=== PATIENT | female | born 1940 | race Asian ===

== ENCOUNTER 2022-01-22 07:58 | Inpatient (IN) | payer MEDICARE, OTHER ==
[~2022-01-22] VITALS: Ht 157.5 cm; Wt 68.9 kg
[2022-01-22 08:46] LABS: BASOPHILS % (AUTO) 0.4 % (0.0-2.0); EOSINOPHILS % (AUTO) 1.3 % (1.0-6.0); HEMATOCRIT 26.8 % (36-46); HEMOGLOBIN 8.7 g/dL (12.0-16.0); LYMPHOCYTES # (AUTO) 0.4 K/uL (1.0-4.8); LYMPHOCYTES % (AUTO) 4.4 % (22.0-44.0); MEAN CORPUSCULAR HGB CONC 32.4 G/dL (31.0-37.0); MEAN CORPUSCULAR VOLUME 93 fL (80-100); MONOCYTES # (AUTO) 0.7 K/uL (0.1-1.0); MONOCYTES % (AUTO) 7.7 % (2.0-9.0); NEUTROPHILS # (AUTO) 8.2 K/uL (1.8-7.7); NEUTROPHILS % (AUTO) 86.2 % (40.0-70.0); PLATELET COUNT (AUTO) 222 K/uL (150-450); RED BLOOD CELL COUNT(AUTO) 2.89 MIL/uL (4.00-5.20); RED CELL DISTRIBUTION WIDTH 15.2 % (11.5-14.5)
[2022-01-22 08:55] LABS: CALCIUM, TOTAL 9.3 mg/dL (8.8-10.5); CREATININE 1.69 mg/dL (0.60-1.30); POTASSIUM 3.6 mmol/L (3.5-5.1)
[2022-01-22 08:58] LABS: INR 0.9 (0.9-1.1)
[2022-01-22 09:01] LABS: ALBUMIN 2.5 g/dL (3.4-5.0); BILIRUBIN,TOTAL 0.5 mg/dL (0.1-1.0); TOTAL PROTEIN, SERUM 6.2 g/dL (6.4-8.2)
[2022-01-22] MEDS ORDERED: FUROSEMIDE 20 MG/2 ML VIAL IVP ONE (09:15)
[2022-01-22] MEDS ORDERED: CefTRIAXone 1 GM/DEXTROSE 50 ML IV ONE (09:15)
[2022-01-22] MEDS ORDERED: NITROGLYCERIN 2% (1 GM=INCH) PACKET TP ONE (09:15)
[2022-01-22] MEDS ORDERED: AZITHROMYCIN 500 MG/NS 250 ML IV ONE (09:15)
[2022-01-22] MEDS ORDERED: OMEP20 PO (09:46)
[2022-01-22] MEDS ORDERED: AMLO-257 PO (09:46)
[2022-01-22] MEDS ORDERED: SENN8.6T90 PO (09:46)
[2022-01-22] MEDS ORDERED: LEVO25TA9 PO (09:46)
[2022-01-22] MEDS ORDERED: AMIO200T68 PO (09:46)
[2022-01-22] MEDS ORDERED: FURO20 PO (09:46)
[2022-01-22] MEDS ORDERED: METO25 PO (09:46)
[2022-01-22] MEDS ORDERED: SIMV-259 PO (09:46)
[2022-01-22] MEDS ORDERED: BUSP5TAB20 PO (09:46)
[2022-01-22 10:14] LABS: ABG BASE EXCESS 10.9 mmol/L (-2.0-3.0); ABG CARBOXYHEMOGLOBIN 0.2 % (0.0-1.5); ABG METHEMOGLOBIN 0.1 % (0.0-1.5); ABG OXYGEN CONTENT 11.8 mL/dL (15.0-23.0); ABG OXYGEN SATURATION 86.3 % (95.0-98.0); ABG PCO2 59 mmHg (35-45); ABG PH 7.402 (7.35-7.450); ABG TOTAL HEMOGLOBIN 9.7 G/dL (12.0-18.0); PO2, ARTERIAL BG 50.2 mmHg (71.0-79.0); SOURCE, BLOOD GAS ARTERIAL; TEMPERATURE, FAHRENHEIT, BG 98.6 FAHREN (96.0-98.6)
[2022-01-22 10:15] LABS: ABG A-A DIFF O2 29.2 mmHg (10-20.0); O2 DEVICE,BLOOD GAS ROOM AIR (ROOM AIR); SITE, BLOOD GAS RT RADIAL
[2022-01-22 12:01] LABS: GLUCOMETER DEV NAME(LOC) ERT.5; GLUCOSE,POINT OF CARE 125 MG/DL (70-110)
[2022-01-22 12:03] LABS: COVID AG,FIA SOURCE NASOPHARYNGEAL
[2022-01-22] MEDS ORDERED: MethylPREDNISolone SOD SUCC 125 MG/2 ML VIAL IVP ONE (12:45)
[2022-01-22] MEDS ORDERED: MORPHINE SULFATE 2 MG/ML SYRINGE IVP PRN (14:00)
[2022-01-22] MEDS ORDERED: HYDROCODONE/ACETAMINOPHEN 5-325 MG TABLET PO PRN (14:00)
[2022-01-22] MEDS ORDERED: ZOLPIDEM TARTRATE 5 MG TABLET PO PRN (14:00)
[2022-01-22] MEDS ORDERED: MAGNESIUM HYDROXIDE SUSPENSION 30 ML UDCUP PO PRN (14:00)
[2022-01-22] MEDS ORDERED: ACETAMINOPHEN 325 MG TABLET PO PRN (14:00)
[2022-01-22] MEDS ORDERED: IPRATROPIUM BROMIDE 0.5 MG/2.5 ML NEB SOLUTION NEB PRN (14:00)
[2022-01-22] MEDS ORDERED: BISACODYL 10 MG RECTAL RECTAL SUPPOSITORY PR PRN (14:00)
[2022-01-22] MEDS ORDERED: ALBUTEROL SULFATE 2.5 MG/0.5 ML NEB SOLUTION NEB PRN (14:00)
[2022-01-22] MEDS ORDERED: ONDANSETRON HCL 4 MG/2 ML VIAL IVP PRN (14:00)
[2022-01-22] MEDS: ALBUTEROL SULFATE 2.5 MG/0.5 ML NEB SOLUTION NEB SCH ×2 (14:49→19:42)
[2022-01-22] MEDS: IPRATROPIUM BROMIDE 0.5 MG/2.5 ML NEB SOLUTION NEB SCH ×2 (14:49→19:41)
[2022-01-22 15:37] LABS: INFLUENZA TYPE A NEGATIVE FOR TYPE A (NEGATIVE); INFLUENZA TYPE B NEGATIVE FOR TYPE B (NEGATIVE)
[2022-01-22 16:00] VITALS: BP 174/81
[2022-01-22] MEDS ORDERED: METOPROLOL TARTRATE 25 MG TABLET ONE (17:07)
[2022-01-22] MEDS: BENZONATATE 100 MG CAPSULE PO SCH ×2 (17:24→21:31)
[2022-01-22] MEDS: MethylPREDNISolone SOD SUCC 125 MG/2 ML VIAL IVP SCH ×2 (17:24→23:56)
[2022-01-22] MEDS: HEPARIN SODIUM,PORCINE 5,000 UNITS/ML VIAL SQ SCH ×2 (17:24→23:55)
[2022-01-22] MEDS ORDERED: INFLUENZA VIRUS VACCINE QVS 2022-23 (6MO+)/PF 60 MCG/0.5 ML SYRINGE IM. ONE (18:45)
[2022-01-22 20:00] VITALS: BP 142/56
[2022-01-22] MEDS ORDERED: METOPROLOL TARTRATE 25 MG TABLET PO SCH (21:00)
[2022-01-22] MEDS ORDERED: BusPIRone HCL 5 MG TABLET PO SCH (21:00)
[2022-01-22] MEDS ORDERED: SIMVASTATIN 10 MG TABLET PO SCH (21:00)
[2022-01-22] MEDS: FUROSEMIDE 40 MG/4 ML VIAL IVP SCH (21:31)
[2022-01-22] MEDS: GuaiFENesin SR 600 MG ER TABLET PO SCH (21:31)
[2022-01-22] MEDS: DOCUSATE SODIUM 100 MG CAPSULE PO SCH (21:31)
[2022-01-23] VITALS: BP 131/56
[2022-01-23] MEDS: ALBUTEROL SULFATE 2.5 MG/0.5 ML NEB SOLUTION NEB SCH ×3 (01:50→14:53)
[2022-01-23] MEDS: IPRATROPIUM BROMIDE 0.5 MG/2.5 ML NEB SOLUTION NEB SCH ×3 (01:50→14:53)
[2022-01-23 04:00] VITALS: BP 150/58
[2022-01-23] MEDS: MethylPREDNISolone SOD SUCC 125 MG/2 ML VIAL IVP SCH ×3 (06:01→17:34)
[2022-01-23] MEDS ORDERED: LEVOTHYROXINE SODIUM 25 MCG TABLET PO SCH (06:30)
[2022-01-23 08:00] VITALS: BP 156/73
[2022-01-23] MEDS ORDERED: SODIUM CHLORIDE 0.9% 250 ML IV ONE (08:06)
[2022-01-23] MEDS: HEPARIN SODIUM,PORCINE 5,000 UNITS/ML VIAL SQ SCH ×2 (08:10→15:33)
[2022-01-23] MEDS: FUROSEMIDE 40 MG/4 ML VIAL IVP SCH (08:10)
[2022-01-23] MEDS: DOCUSATE SODIUM 100 MG CAPSULE PO SCH (08:11)
[2022-01-23] MEDS: GuaiFENesin SR 600 MG ER TABLET PO SCH (08:11)
[2022-01-23] MEDS: BENZONATATE 100 MG CAPSULE PO SCH ×3 (08:11→15:33)
[2022-01-23 08:21] LABS: GLUCOSE,POINT OF CARE 164 MG/DL (70-110)
[2022-01-23] MEDS ORDERED: ASPIRIN 81 MG CHEWABLE TABLET PO SCH (09:00)
[2022-01-23] MEDS ORDERED: FUROSEMIDE 40 MG TABLET PO SCH (09:00)
[2022-01-23] MEDS ORDERED: CefTRIAXone 1 GM/DEXTROSE 50 ML IV SCH (09:00)
[2022-01-23] MEDS ORDERED: AmLODIPine BESYLATE 5 MG TABLET PO SCH ×2 (09:00)
[2022-01-23] MEDS ORDERED: AMIODARONE HCL 200 MG TABLET PO SCH (09:00)
[2022-01-23] MEDS ORDERED: PANTOPRAZOLE SODIUM 40 MG DR TABLET PO SCH (09:00)
[2022-01-23 09:27] LABS: BASOPHILS % (AUTO) 0.1 % (0.0-2.0); EOSINOPHILS % (AUTO) 0 % (1.0-6.0); LYMPHOCYTES # (AUTO) 0.3 K/uL (1.0-4.8); LYMPHOCYTES % (AUTO) 3.1 % (22.0-44.0); MEAN CORPUSCULAR HEMOGLOBIN 29.6 pg (26.0-34.0); MEAN CORPUSCULAR HGB CONC 32.1 G/dL (31.0-37.0); MEAN CORPUSCULAR VOLUME 92 fL (80-100); MONOCYTES # (AUTO) 0.1 K/uL (0.1-1.0); MONOCYTES % (AUTO) 1.3 % (2.0-9.0); NEUTROPHILS # (AUTO) 9.3 K/uL (1.8-7.7); PLATELET COUNT (AUTO) 247 K/uL (150-450); RED BLOOD CELL COUNT(AUTO) 3.03 MIL/uL (4.00-5.20); RED CELL DISTRIBUTION WIDTH 15.1 % (11.5-14.5)
[2022-01-23 09:33] LABS: NEUTROPHILS % (AUTO) 95.5 % (40.0-70.0)
[2022-01-23 09:52] LABS: THYROID STIMULATING HORMONE 1.86 uIU/mL (0.36-3.74)
[2022-01-23] MEDS ORDERED: AZITHROMYCIN 500 MG/NS 250 ML IV SCH (10:00)
[2022-01-23 10:34] LABS: CALCIUM, TOTAL 9.1 mg/dL (8.8-10.5); CREATININE 1.69 mg/dL (0.60-1.30); POTASSIUM 3.2 mmol/L (3.5-5.1)
[2022-01-23 10:40] LABS: CHOL/HDL RATIO 2.1 (3.9-5.7)
[2022-01-23 12:00] VITALS: BP 135/59
[2022-01-23 16:00] VITALS: BP 132/47
== END 2022-01-23 18:30 | disposition short-term general hospital (02) | DRG 189 ==
LOC: EMS 07:59 → ICU 14:50
PROVIDERS: ADMIT Internal Medicine; ATTEND Internal Medicine
PROC: 5A09357 Assistance with Respiratory Ventilation, Less than 24 Consecutive Hours, Continuous Positive Airway Pressure (ICD-10-PCS; principal; 2022-01-22)
DX: J96.21 Acute and chronic respiratory failure with hypoxia (principal); Q33.6 Congenital hypoplasia and dysplasia of lung; I50.31 Acute diastolic (congestive) heart failure; I13.0 Hypertensive heart and chronic kidney disease with heart failure and stage 1 through stage 4 chronic kidney disease, or unspecified chronic kidney disease; J44.1 Chronic obstructive pulmonary disease with (acute) exacerbation; N17.9 Acute kidney failure, unspecified; I48.20 Chronic atrial fibrillation, unspecified; Q24.0 Dextrocardia; J96.22 Acute and chronic respiratory failure with hypercapnia; I48.0 Paroxysmal atrial fibrillation; D63.8 Anemia in other chronic diseases classified elsewhere; K21.9 Gastro-esophageal reflux disease without esophagitis; N18.30 Chronic kidney disease, stage 3 unspecified; E87.6 Hypokalemia; E11.65 Type 2 diabetes mellitus with hyperglycemia; E03.9 Hypothyroidism, unspecified; E11.22 Type 2 diabetes mellitus with diabetic chronic kidney disease; H91.90 Unspecified hearing loss, unspecified ear; Z82.49 Family history of ischemic heart disease and other diseases of the circulatory system; Z83.3 Family history of diabetes mellitus; Z99.81 Dependence on supplemental oxygen; Z79.4 Long term (current) use of insulin
CPT/HCPCS: 71045; 80048; 80053; 80061; 82550; 82805; 82962; 83605; 83880; 84443; 84484; 85025; 85610; 85730; 87081; 87804; 93005; 93306; 93970; 94640; 94660; G0378; J0456; J0696; J1644; J1940; J2930; J7050; 36415-L1; 36415-TC; 82803-TC; J7613